=== PATIENT | female | born 1975 | race Caucasian/White ===

== ENCOUNTER 2019-02-13 13:10 | Outpatient (CLI) | payer BC, OTHER | END 2019-02-13 13:11 | disposition home or self-care (01) | DRG 558 | LOC: CONVCARE 13:10 | PROVIDERS: ATTEND Orthopaedic Surgery | DX: M75.42 Impingement syndrome of left shoulder (principal); M77.12 Lateral epicondylitis, left elbow | CPT/HCPCS: 73030; 73070 ==